=== PATIENT | female | born 1970 | race Caucasian/White ===

== ENCOUNTER 2020-05-16 13:17 | Emergency (ER) | payer OTHER ==
[2020-05-16] MEDS ORDERED: Ketorolac 60 MG/2 ML SDV IM ONE (13:46)
[2020-05-16] MEDS ORDERED: Baclofen 10 MG Tab PO ONE (13:47)
--- NOTE | 2020-05-16 14:47 | EDM.PDOC ---
ED HPI GENERAL MEDICAL PROBLEM - General Chief Complaint: Abdominal Pain Stated Complaint: PAIN UNDER RIGHT BREAST AREA Time Seen by Provider: 05/16/20 14:38 Source of Information: Reports: Patient History Limitations: Reports: No Limitations - History of Present Illness INITIAL COMMENTS - FREE TEXT/NARRATIVE: [place] she was swinging a racket and being more active. She was ok last evening but she woke up and was very uncomfortable. Onset: Today Duration: Hour(s): Location: Reports: Chest Right Abdomen Pain Score (Numeric/FACES): 8 - Related Data Allergies Allergy/AdvReac Type Severity Reaction Status Date / Time No Known Allergies Allergy Verified 05/16/20 13:47 Home Meds: Home Meds ALPRAZolam [Xanax] 0.5 mg PO TID PRN 05/21/16 [History] Cetirizine HCl/Pseudoephedrine [ZyrTEC-D] 1 tab PO ASDIRECTED PRN 05/21/16 [History] Ibuprofen 800 mg PO TID PRN 05/21/16 [History] Losartan/Hydrochlorothiazide [Losartan-HCTZ 100-25 MG] 1 tab PO BEDTIME 05/21/16 [History] traZODone HCl [Trazodone HCl] 50 mg PO BEDTIME PRN 05/16/20 [History] Past Medical History HEENT History: Reports: Allergic Rhinitis, Sinusitis Cardiovascular History: Reports: High Cholesterol, Hypertension Psychiatric History: Reports: Anxiety, Depression - Past Surgical History HEENT Surgical History: Reports: Adenoidectomy, Myringotomy w Tube(s), Polypectomy, Tonsillectomy GI Surgical History: Reports: Appendectomy, Cholecystectomy Female Surgical History: Reports: Hysterectomy Musculoskeletal Surgical History: Reports: Other (See Below) Other Musculoskeletal Surgeries/Procedures:: hip surgery. Social & Family History - Tobacco Use Smoking Status *Q: Never Smoker - Caffeine Use Caffeine Use: Reports: Coffee - Alcohol Use Days Per Week of Alcohol Use: 7 Number of Drinks Per Day: 4 Total Drinks Per Week: 28 - Recreational Drug Use Recreational Drug Use: No ED ROS GENERAL - Review of Systems Review Of Systems: See Below Constitutional: Reports: No Symptoms HEENT: Reports: No Symptoms Respiratory: Reports: Pleuritic Chest Pain, Other (pt is having alot of pain whhen she takes a deep breath or moves. ) Cardiovascular: Reports: Chest Pain, Other (hurts to move and take a deep breath. She does not have abdomanal pain. ) Endocrine: Reports: No Symptoms GI/Abdominal: Reports: No Symptoms : Reports: No Symptoms Musculoskeletal: Reports: Other (pain in the rt chest. ) Skin: Reports: No Symptoms Neurological: Reports: No Symptoms Psychiatric: Reports: No Symptoms Hematologic/Lymphatic: Reports: No Symptoms ED EXAM, GI/ABD - Physical Exam Exam: See Below Text/Narrative:: pt arrived with severe pain in the rt lateral chest, hurts alot with deep breathing. She has no abdomanal pain. Exam Limited By: No Limitations General Appearance: Alert, Anxious, Moderate Distress Ears: Normal External Exam Nose: Normal Inspection Throat/Mouth: Normal Inspection Head: Atraumatic Neck: Normal Inspection Respiratory/Chest: Decreased Breath Sounds, Splinting Cardiovascular: Regular Rate, Rhythm GI/Abdominal Exam: Soft, Non-Tender, Other (pt hs no rt upper abdomanal tenderness) (Female) Exam: Deferred Rectal (Female) Exam: Deferred Back Exam: Normal Inspection Extremities: Normal Inspection Neurological: Alert, Oriented, Normal Cognition Psychiatric: Normal Affect Course - Vital Signs Last Recorded V/S: Last Vital Signs Temp 36.2 C 05/16/20 13:47 Pulse 73 05/16/20 16:25 Resp 12 05/16/20 13:47 BP 95/53 L 05/16/20 16:25 Pulse Ox 95 05/16/20 16:25 - Orders/Labs/Meds Orders: Active Orders 24 hr Category Date Time Status Abdomen Ltd [US] Stat Exams 05/16/20 16:25 Stop Req Labs: Laboratory Tests 05/16/20 05/16/20 05/16/20 Range/Units 13:48 14:05 15:00 WBC 7.5 (4.5-11.0) K/uL RBC 3.95 (3.30-5.50) M/uL Hgb 12.9 (12.0-15.0) g/dL Hct 36.5 (36.0-48.0) % MCV 92 (80-98) fL MCH 33 H (27-31) pg MCHC 35 (32-36) % Plt Count 207 (150-400) K/uL Neut % (Auto) 62 (36-66) % Lymph % (Auto) 25 (24-44) % [place] % (Auto) 12 H (2-6) % Eos % (Auto) 1 L (2-4) % Baso % (Auto) 0 (0-1) % Sodium 138 L (140-148) mmol/L Potassium 3.1 L (3.6-5.2) mmol/L Chloride 100 (100-108) mmol/L Carbon Dioxide 30 (21-32) mmol/L Anion Gap 11.1 (5.0-14.0) mmol/L BUN 13 (7-18) mg/dL Creatinine 1.1 H (0.6-1.0) mg/dL Est Cr Clr Drug Dosing 58.84 mL/min Estimated GFR (MDRD) 52 L (>60) Glucose 96 (74-106) mg/dL Calcium 8.5 (8.5-10.1) mg/dL Total Bilirubin 0.5 (0.2-1.0) mg/dL AST 54 H (15-37) U/L ALT 95 H (12-78) U/L Alkaline Phosphatase 89 (46-116) U/L C-Reactive Protein 0.09 (0.0-0.3) mg/dL Total Protein 7.2 (6.4-8.2) g/dL Albumin 3.9 (3.4-5.0) g/dL Globulin 3.3 (2.3-3.5) g/dL Albumin/Globulin Ratio 1.2 (1.2-2.2) Urine Color Yellow (YELLOW) Urine Appearance Clear (CLEAR) Urine pH 5.5 (5.0-8.0) Ur Specific [place] 1.025 (1.008-1.030) Urine Protein Negative (NEGATIVE) mg/dL Urine Glucose (UA) Negative (NEGATIVE) mg/dL Urine Ketones Negative (NEGATIVE) mg/dL Urine Occult Blood Negative (NEGATIVE) Urine Nitrite Negative (NEGATIVE) Urine Bilirubin Negative (NEGATIVE) Urine Urobilinogen 0.2 (0.2-1.0) EU/dL Ur Leukocyte Esterase Negative (NEGATIVE) Urine RBC 0-5 (0-5) Urine WBC 0-5 (0-5) Ur Epithelial Cells Rare Amorphous Sediment Not seen Urine Bacteria Few Urine Mucus Not seen Meds: Medications Discontinued Medications Generic Name Dose Route Start Last Admin Trade Name Freq PRN Reason Stop Dose Admin Baclofen 10 mg 05/16/20 13:47 05/16/20 14:34 Lioresal PO 05/16/20 13:48 10 mg ONETIME ONE Administration Hydromorphone HCl 0.5 mg 05/16/20 15:25 05/16/20 15:32 Dilaudid IM 05/16/20 15:26 0.5 mg ONETIME ONE Administration Ketorolac Tromethamine 60 mg 05/16/20 13:46 05/16/20 14:35 Toradol IM 05/16/20 13:47 60 mg ONETIME ONE Administration Oxycodone/Acetaminophen 1 tab 05/16/20 15:26 05/16/20 15:36 Percocet 325-5 Mg PO 05/16/20 15:27 1 tab ONETIME ONE Administration - Re-Assessments/Exams Free Text/Narrative Re-Assessment/Exam: 05/16/20 17:09 chest xray was normal. Her lab work looked good . her k is low. She was given dilaudid tordahl and baclofen. She is much more comfortable. Departure - Departure Time of Disposition: 17:10 Disposition: Home, Self-Care 01 Condition: Fair Clinical Impression: Chest wall injury - Discharge Information Referrals: PCP,None [Primary Care Provider] - Forms: ED Department Discharge Care Plan Goals: encourage deep breathin, ice to the left anterior lateral ches, send ice packs home with the pt, baclofen 10 mg bid, percocet 5/325 q6h prn for pain, # 12, motrin 600mg tid, a rib binder Sepsis Event Note (ED) - Evaluation Sepsis Screening Result: No Definite Risk - Focused Exam Vital Signs: Vital Signs Temp Pulse Resp BP Pulse Ox 05/16/20 16:25 73 95/53 L 95 05/16/20 13:47 36.2 C 86 12 128/91 H 100 05/16/20 13:39 36.2 C 86 12 128/91 H 100 - My Orders Last 24 Hours: My Active Orders 05/16/20 16:25 Abdomen Ltd [US] Stat - Assessment/Plan Last 24 Hours: My Active Orders 05/16/20 16:25 Abdomen Ltd [US] Stat
[2020-05-16] MEDS ORDERED: HYDROmorphone 0.5 MG/0.5 ML Syringe IM ONE (15:25)
--- NOTE | 2020-05-16 15:25 | CR ---
CHEST: 2 view CLINICAL HISTORY:Right chest pain COMPARISON:None FINDINGS: The heart size, pulmonary vascularity and hilar structures are normal. No infiltrate effusion or pneumothorax is seen. IMPRESSION: No acute cardiopulmonary process.
[2020-05-16] MEDS ORDERED: Acetaminophen/oxyCODONE 325-5 MG Tab PO ONE (15:26)
[2020-05-16 16:26] VITALS: BP 95/53; PULSE 73
== END 2020-05-16 18:00 | disposition home or self-care (01) ==
LOC: JP.ED 13:17
DX: S29.9XXA Unspecified injury of thorax, initial encounter (principal); I10 Essential (primary) hypertension; F41.9 Anxiety disorder, unspecified; F32.9 Major depressive disorder, single episode, unspecified; Z79.899 Other long term (current) drug therapy; X58.XXXA Exposure to other specified factors, initial encounter
CPT/HCPCS: 36415; 71046; 80053; 81001; 85025; 86140; 96372; 99284; A9270; J1170; J1885